=== PATIENT | male | born 1980 | race Caucasian/White ===

== ENCOUNTER 2018-05-29 21:07 | Emergency (ER) | payer SELFPAY, MEDICAID ==
[2018-05-30] MEDS: BENOXINATE/FLUORESCEIN DROPS BOTH EYES (00:54)
[2018-05-30] MEDS: OPHTHALMIC IRRIG SOLUTION 120 ML BOTH EYES (01:00)
[2018-05-30] MEDS: ERYTHROMYCIN 1 GM OPH OINT BOTH EYES ×2 (01:55→03:34)
[2018-05-30] MEDS: IBUPROFEN 600 MG TAB PO (03:35)
== END 2018-05-30 03:38 | disposition home or self-care (01) ==
LOC: FTE 21:07
DX: T15.91XA Foreign body on external eye, part unspecified, right eye, initial encounter (principal); X58.XXXA Exposure to other specified factors, initial encounter; Y92.9 Unspecified place or not applicable
CPT/HCPCS: 65205; 99283-25